=== PATIENT | female | born 1960 | race Caucasian/White ===

== ENCOUNTER 2016-10-27 23:40 | Inpatient (IN) | payer MEDICAID ==
[~2016-10-27] VITALS: Ht 162.6 cm; Wt 86.1 kg
[~2016-10-27 23:40] MED LIST: ABILIFY 10MG TA10 MG PO; AMOXICILLIN 8751 TAB PO; BUMEX 1MG TA1 MG/TA1 PO; COREG 25MG25 MG/TAB PO; COREG 3.123.125 MG/T PO; COREG12.5 MG PO; DIOVAN 160MG160 MG PO; DIOVAN HCT 25 M1 TA1 PO; GEODON 20 MG20 MG PO; K-DUR 10 MEQ T10 MEQ PO; LAMISIL250 MG PO; LEVAQUIN 5500 MG/TA1 PO; MACROBID 1100 MG/CAP PO; MAG-OX 400400 MG/TAB PO; MAGNESIUM250 M1 PO; NAPROSYN500 MG PO; NO HOME MEDICATIONS; NORCO 325 MG-101 TAB PO; NORCO 325 MG-51 TAB PO; NORVASC 5MG5 MG/TAB PO; NORVASC2.5 MG PO; OXYCONTIN 10MG10 MG PO; PERCOCET 325 MG1 TA2 PO; PERCOCET 325 MG1 TAB PO; PHENERGAN 25 TA25 MG PO; PREDNISONE20 MG PO; PRILOSEC 20MG20 MG PO; PROAIR HFA0.09 MG/AC IH; PROTONIX 40MG T40 MG PO; PYRIDIUM 100MG100 MG PO; SINGULAIR 4MG CH4 MG PO; TUSS PO; UNABLE; XANAX2 MG PO; ZOFRAN 4MG T4 MG/TAB PO
[2016-10-27 23:52] LABS: BASO # 0.1 (0.0-0.2); BASO % 1.2 % (0.0-2.0); EOS # 0.3 (0.0-0.7); EOS % 5.1 % (0-4.0); GRAN # 3.6 (1.4-6.5); GRAN % 53.1 % (42.2-75.2); HEMOGLOBIN 12.3 g/dl (12.5-16.0); LYMPH # 2.3 (1.2-3.4); LYMPH % 33.7 % (20.0-51.0); MEAN CELL VOLUME 94 fl (80.0-100.0); MEAN CORPUSCULAR HEMOGLOBIN 32 pg (27.0-31.0); MEAN CORPUSCULAR HGB CONC 34 g/dl (33.0-37.0); MONO # 0.4 (0.1-0.6); MONO % 6.6 % (1.7-9.3); PLATELET COUNT 247 K/mm3 (130-400); RED BLOOD COUNT 3.82 M/mm3 (4.10-5.30); REDCELL DISTRIBUTION WIDTH-CV 12.1 % (11.5-14.5); WHITE BLOOD COUNT 6.7 K/mm3 (4.8-10.8)
[2016-10-27 23:53] LABS: HEMATOCRIT 35.9 % (37.0-47.0)
[2016-10-27 23:59] LABS: ADJUSTED CALCIUM 8.7 mg/dL (8.4-10.2); ALANINE AMINOTRANSFERASE 79 U/L (9-52); ALBUMIN 3.6 gm/dL (3.5-5.0); ALKALINE PHOSPHATASE 130 U/L (50-136); ANION GAP 16 mmol/L (7-16); BILIRUBIN,TOTAL 0.7 mg/dL (0.0-1.0); BLOOD UREA NITROGEN 12 mg/dL (7-17); CALCIUM 8.4 mg/dL (8.4-10.2); CARBON DIOXIDE 22 mmol/L (22-30); CHLORIDE 112 mmol/L (98-107); CREATININE, serum 0.78 mg/dL (0.52-1.25); GLUCOSE 106 mg/dL (74-106); POTASSIUM 3.3 mmol/L (3.4-5.0); SODIUM 150 mmol/L (137-145); TOTAL PROTEIN 7.1 gm/dL (6.4-8.2)
[2016-10-28] VITALS (928 sets, daily range): BP systolic 90–158; BP diastolic 50–98; PULSE 72–101; TEMP 97–97.9; O2SAT 83–100
[2016-10-28 00:03] LABS: PH 6 (5-8); SQUAMOUS EPITHELIAL None Seen /hpf; URINE APPEARANCE Clear; URINE BACTERIA None Seen /hpf; URINE BILIRUBIN Negative (NEGATIVE); URINE BLOOD 1+ (NEGATIVE); URINE COLOR Colorless; URINE GLUCOSE Negative (NEGATIVE); URINE KETONE Negative (NEGATIVE); URINE RBC None Seen /hpf; URINE UROBILINOGEN Negative (NEGATIVE); URINE WBC None Seen /hpf
[2016-10-28 00:04] LABS: ARTERIAL BLD GAS O2 SATURATION 99.1 % (92-100); ARTERIAL BLOOD GAS BASE EXCESS -5.9 (-2-2); ARTERIAL BLOOD GAS HCO3 19.5 meq/L (22-26); ARTERIAL BLOOD GAS PO2 551.6 mmHg (80-100); ARTERIAL BLOOD GAS pH 7.33 (7.35-7.45)
[2016-10-28 00:05] LABS: ALLEN TEST YES; ALLENS TEST RESULT PASS; ARTERIAL BLD GAS TCO2 CT 20.7; ATS? YES
[2016-10-28 00:09] LABS: AMPHETAMINE URINE NEGATIVE; BARBITURATES URINE NEGATIVE; BENZODIAZEPINES URINE POSITIVE; BUPRENORPHINE URINE NEGATIVE; METHADONE URINE NEGATIVE; OPIATES URINE NEGATIVE; OXYCODONE URINE POSITIVE; PHENCYCLIDINE URINE NEGATIVE; PROPOXYPHENE URINE NEGATIVE; THC CANNABINOIDS URINE NEGATIVE
[2016-10-28 00:35] LABS: ACETAMINOPHEN < 10 ug/mL (10-30); SALICYLATE < 1.0 mg/dL
[2016-10-28 05:15] LABS: ARTERIAL BLD GAS O2 SATURATION 97.9 % (92-100); ARTERIAL BLD GAS TCO2 CT 17.7; ARTERIAL BLOOD GAS BASE EXCESS -6.6 (-2-2); ARTERIAL BLOOD GAS HCO3 16.8 meq/L (22-26)
[2016-10-28 05:16] LABS: ALLEN TEST YES; ALLENS TEST RESULT PASS; ATS? YES
[2016-10-28 05:34] LABS: BASO # 0.1 (0.0-0.2); BASO % 0.8 % (0.0-2.0); EOS # 0.3 (0.0-0.7); EOS % 3.9 % (0-4.0); GRAN # 4.6 (1.4-6.5); GRAN % 60.1 % (42.2-75.2); LYMPH # 2.1 (1.2-3.4); MEAN CELL VOLUME 95 fl (80.0-100.0); MEAN CORPUSCULAR HGB CONC 34 g/dl (33.0-37.0); MEAN PLATELET VOLUME 9.7 fl (7.4-10.4); MONO # 0.6 (0.1-0.6); MONO % 7.9 % (1.7-9.3); PLATELET COUNT 175 K/mm3 (130-400); RED BLOOD COUNT 3.37 M/mm3 (4.10-5.30); REDCELL DISTRIBUTION WIDTH-CV 12.3 % (11.5-14.5); WHITE BLOOD COUNT 7.6 K/mm3 (4.8-10.8)
[2016-10-28 05:37] LABS: HEMATOCRIT 31.9 % (37.0-47.0); HEMOGLOBIN 10.8 g/dl (12.5-16.0); MEAN CORPUSCULAR HEMOGLOBIN 32 pg (27.0-31.0)
[2016-10-28 05:44] LABS: ADJUSTED CALCIUM 8.8 mg/dL (8.4-10.2); BILIRUBIN,TOTAL 0.5 mg/dL (0.0-1.0); CREATININE, serum 0.81 mg/dL (0.52-1.25); POTASSIUM 3.9 mmol/L (3.4-5.0); TOTAL PROTEIN 6.2 gm/dL (6.4-8.2)
[2016-10-28] MEDS ORDERED: DAZIDOX10 MG PO (09:45)
== END 2016-10-28 16:54 | disposition home or self-care (01) | DRG 918 ==
LOC: COL.ER 23:40 → ICU 10-28 00:18
PROVIDERS: Family Medicine
PROC: 0BH17EZ Insertion of Endotracheal Airway into Trachea, Via Natural or Artificial Opening (ICD-10-PCS; principal; 2016-10-28)
PROC: 5A1935Z Respiratory Ventilation, Less than 24 Consecutive Hours (ICD-10-PCS; 2016-10-28)
DX: T42.4X2A Poisoning by benzodiazepines, intentional self-harm, initial encounter (principal); R47.81 Slurred speech; I10 Essential (primary) hypertension; F43.21 Adjustment disorder with depressed mood; Z98.84 Bariatric surgery status
CPT/HCPCS: 90791-AI; 99223-AI; A4315; C9113; J1650; J2704; J3480; J7030

== ENCOUNTER 2016-11-13 10:26 | Emergency (ER) | payer MEDICAID ==
[~2016-11-13] VITALS: Ht 165.1 cm; Wt 77.3 kg
[~2016-11-13 10:26] MED LIST changes: +DAZIDOX10 MG PO
[2016-11-13 10:37] VITALS: TEMP 98.2
[2016-11-13 10:49] LABS: BASO # 0.1 (0.0-0.2); BASO % 0.8 % (0.0-2.0); EOS # 0.2 (0.0-0.7); EOS % 2.3 % (0-4.0); GRAN # 6.1 (1.4-6.5); GRAN % 72.8 % (42.2-75.2); HEMATOCRIT 37.7 % (37.0-47.0); HEMOGLOBIN 13.1 g/dl (12.5-16.0); LYMPH # 1.5 (1.2-3.4); LYMPH % 17.4 % (20.0-51.0); MEAN CELL VOLUME 93 fl (80.0-100.0); MEAN CORPUSCULAR HEMOGLOBIN 32 pg (27.0-31.0); MEAN CORPUSCULAR HGB CONC 35 g/dl (33.0-37.0); MEAN PLATELET VOLUME 10.9 fl (7.4-10.4); MONO # 0.6 (0.1-0.6); MONO % 6.5 % (1.7-9.3); PLATELET COUNT 263 K/mm3 (130-400); RED BLOOD COUNT 4.07 M/mm3 (4.10-5.30); REDCELL DISTRIBUTION WIDTH-CV 11.9 % (11.5-14.5); WHITE BLOOD COUNT 8.4 K/mm3 (4.8-10.8)
[2016-11-13 10:59] LABS: PARTIAL THROMBOPLASTIN TIME 32.5 SECONDS (26.0-37.0)
[2016-11-13 11:04] LABS: ADJUSTED CALCIUM 9.3 mg/dL (8.4-10.2); ALANINE AMINOTRANSFERASE 54 U/L (9-52); ALKALINE PHOSPHATASE 148 U/L (50-136); ANION GAP 13 mmol/L (7-16); BILIRUBIN,TOTAL 1.1 mg/dL (0.0-1.0); BLOOD UREA NITROGEN 17 mg/dL (7-17); C-REACTIVE PROTEIN 0.8 mg/dL (0.0-0.9); CALCIUM 9.3 mg/dL (8.4-10.2); CARBON DIOXIDE 23 mmol/L (22-30); CHLORIDE 106 mmol/L (98-107); CREATININE, serum 0.78 mg/dL (0.52-1.25); GLUCOSE 96 mg/dL (74-106); LIPASE 42 U/L (23-300); POTASSIUM 3.3 mmol/L (3.4-5.0); SODIUM 141 mmol/L (137-145); TOTAL PROTEIN 7.6 gm/dL (6.4-8.2)
[2016-11-13 11:12] LABS: B-TYPE NATRIURETIC PEPTIDE 379 pg/mL (0-125)
[2016-11-13 11:14] LABS: TROPONIN-I < 0.012 ng/mL (0.000-0.034)
[2016-11-13 11:15] LABS: INR 1.1 (0.8-3.0); PROTHROMBIN TIME 12.3 SECONDS (9.7-12.8)
[2016-11-13 12:40] VITALS: BP 152/82; PULSE 66
== END 2016-11-13 12:44 | disposition home or self-care (01) ==
LOC: COL.ER 10:26
PROVIDERS: Emergency Medicine
DX: R07.89 Other chest pain (principal); I10 Essential (primary) hypertension

== ENCOUNTER 2016-11-19 11:42 | Emergency (ER) | payer MEDICAID ==
[~2016-11-19] VITALS: Ht 167.6 cm; Wt 79.5 kg
[2016-11-19 12:43] LABS: BASO # 0.1 (0.0-0.2); BASO % 1.3 % (0.0-2.0); EOS # 0.2 (0.0-0.7); EOS % 1.9 % (0-4.0); GRAN # 5.8 (1.4-6.5); GRAN % 51.7 % (42.2-75.2); HEMATOCRIT 41.5 % (37.0-47.0); HEMOGLOBIN 14.1 g/dl (12.5-16.0); LYMPH # 3.9 (1.2-3.4); LYMPH % 35.2 % (20.0-51.0); MEAN CELL VOLUME 94 fl (80.0-100.0); MEAN CORPUSCULAR HEMOGLOBIN 32 pg (27.0-31.0); MEAN CORPUSCULAR HGB CONC 34 g/dl (33.0-37.0); MEAN PLATELET VOLUME 10.2 fl (7.4-10.4); MONO # 1.1 (0.1-0.6); MONO % 9.6 % (1.7-9.3); PLATELET COUNT 418 K/mm3 (130-400); RED BLOOD COUNT 4.43 M/mm3 (4.10-5.30); REDCELL DISTRIBUTION WIDTH-CV 12.4 % (11.5-14.5); WHITE BLOOD COUNT 11.2 K/mm3 (4.8-10.8)
[2016-11-19 12:58] LABS: ADJUSTED CALCIUM 8.8 mg/dL (8.4-10.2); ALANINE AMINOTRANSFERASE 72 U/L (9-52); ALBUMIN 4.2 gm/dL (3.5-5.0); ALKALINE PHOSPHATASE 176 U/L (50-136); ANION GAP 19 mmol/L (7-16); BILIRUBIN,TOTAL 0.6 mg/dL (0.0-1.0); BLOOD UREA NITROGEN 19 mg/dL (7-17); CARBON DIOXIDE 22 mmol/L (22-30); CHLORIDE 106 mmol/L (98-107); CREATININE, serum 1.15 mg/dL (0.52-1.25); GLUCOSE 104 mg/dL (74-106); POTASSIUM 3.2 mmol/L (3.4-5.0); SODIUM 146 mmol/L (137-145); TOTAL PROTEIN 8.1 gm/dL (6.4-8.2)
[2016-11-19 13:00] LABS: ACETAMINOPHEN < 10 ug/mL (10-30); SALICYLATE < 1.0 mg/dL
[2016-11-19 13:12] LABS: AMPHETAMINE URINE NEGATIVE; BARBITURATES URINE NEGATIVE; BENZODIAZEPINES URINE POSITIVE; BUPRENORPHINE URINE NEGATIVE; METHADONE URINE NEGATIVE; OPIATES URINE POSITIVE; OXYCODONE URINE POSITIVE; PHENCYCLIDINE URINE NEGATIVE; PROPOXYPHENE URINE NEGATIVE; THC CANNABINOIDS URINE NEGATIVE
[2016-11-19 22:54] VITALS: BP 167/95; PULSE 107
== END 2016-11-19 22:57 | disposition home or self-care (01) ==
LOC: COL.ER 11:42
PROVIDERS: Nurse Practitioner
DX: F33.2 Major depressive disorder, recurrent severe without psychotic features (principal); F10.120 Alcohol abuse with intoxication, uncomplicated; Y90.8 Blood alcohol level of 240 mg/100 ml or more

== ENCOUNTER 2017-02-27 11:00 | Emergency (ER) | payer MEDICAID ==
[~2017-02-27] VITALS: Ht 167.6 cm; Wt 79.5 kg
[2017-02-27 11:04] VITALS: TEMP 98.4
[2017-02-27 11:59] LABS: BASO # 0.1 (0.0-0.2); BASO % 0.7 % (0.0-2.0); EOS # 0.3 (0.0-0.7); EOS % 3.7 % (0-4.0); GRAN # 5.8 (1.4-6.5); GRAN % 71.4 % (42.2-75.2); HEMATOCRIT 40.7 % (37.0-47.0); LYMPH # 1.4 (1.2-3.4); LYMPH % 16.6 % (20.0-51.0); MEAN CELL VOLUME 91 fl (80.0-100.0); MEAN CORPUSCULAR HEMOGLOBIN 31 pg (27.0-31.0); MEAN CORPUSCULAR HGB CONC 34 g/dl (33.0-37.0); MEAN PLATELET VOLUME 10.7 fl (7.4-10.4); MONO # 0.6 (0.1-0.6); MONO % 7.4 % (1.7-9.3); PLATELET COUNT 269 K/mm3 (130-400); RED BLOOD COUNT 4.47 M/mm3 (4.10-5.30); REDCELL DISTRIBUTION WIDTH-CV 11.6 % (11.5-14.5); WHITE BLOOD COUNT 8.1 K/mm3 (4.8-10.8)
[2017-02-27 12:06] LABS: PH 6 (5-8); SQUAMOUS EPITHELIAL 20-50 /hpf; URINE APPEARANCE Cloudy; URINE BACTERIA Rare /hpf; URINE BILIRUBIN Negative (NEGATIVE); URINE BLOOD 2+ (NEGATIVE); URINE COLOR Yellow; URINE GLUCOSE Negative (NEGATIVE); URINE KETONE Negative (NEGATIVE)
[2017-02-27 12:09] LABS: ALBUMIN 3.9 gm/dL (3.5-5.0); BILIRUBIN,TOTAL 1.3 mg/dL (0.0-1.0); CALCIUM 8.9 mg/dL (8.4-10.2); CREATININE, serum 0.68 mg/dL (0.52-1.25); POTASSIUM 3.5 mmol/L (3.4-5.0); TOTAL PROTEIN 7.3 gm/dL (6.4-8.2)
[2017-02-27] MEDS ORDERED: ZOFRAN ODT4 MG PO (12:50)
[2017-02-27 13:04] VITALS: BP 132/82; PULSE 74
== END 2017-02-27 13:06 | disposition home or self-care (01) ==
LOC: COL.ER 11:00
PROVIDERS: Emergency Medicine
DX: R10.11 Right upper quadrant pain (principal); I10 Essential (primary) hypertension; F32.9 Major depressive disorder, single episode, unspecified; G43.909 Migraine, unspecified, not intractable, without status migrainosus; Z98.84 Bariatric surgery status

== ENCOUNTER 2017-10-03 05:48 | Day surgery (SDC) | payer MEDICAID ==
[~2017-10-03] VITALS: Ht 167.6 cm; Wt 86.9 kg
[2017-10-03] VITALS (7 sets, daily range): BP systolic 106–144; BP diastolic 53–90; PULSE 73–82; TEMP 97.9–98.7
[~2017-10-03 05:48] MED LIST changes: +BLOOD PRESSURE MED; +THYROID MED; +ZOFRAN ODT4 MG PO
[2017-10-03] MEDS ORDERED: SYNTHROID0.075 MG/T PO (06:40)
[2017-10-03] MEDS ORDERED: WELLBUTRIN 100100 MG PO (06:44)
[2017-10-03] MEDS ORDERED: DIOVAN 160MG160 MG PO (06:45)
== END 2017-10-03 09:14 | disposition home or self-care (01) ==
LOC: SDCO 05:48
DX: K64.1 Second degree hemorrhoids (principal); K30 Functional dyspepsia; K62.5 Hemorrhage of anus and rectum; R19.7 Diarrhea, unspecified; K31.89 Other diseases of stomach and duodenum; I10 Essential (primary) hypertension; D50.9 Iron deficiency anemia, unspecified; Z90.49 Acquired absence of other specified parts of digestive tract; Z90.710 Acquired absence of both cervix and uterus
CPT/HCPCS: OP; J2250; J2405; J3010; J7030

== ENCOUNTER → 2018-09-07 | Outpatient (CLI) | payer MEDICAID ==
[~2018-09-07] MED LIST changes: +SYNTHROID0.075 MG/T PO; +WELLBUTRIN 100100 MG PO
== END ==
LOC: MC.RAD 13:20
DX: Z12.31 Encounter for screening mammogram for malignant neoplasm of breast (principal)

== ENCOUNTER 2019-10-29 23:46 | Emergency (ER) | payer MEDICAID ==
[~2019-10-29] VITALS: Ht 167.6 cm; Wt 90.9 kg
[2019-10-29 23:53] VITALS: TEMP 98.8
[2019-10-30 00:18] LABS: BASO # 0.1 (0.0-0.2); BASO % 0.9 % (0.0-2.0); EOS # 0.5 (0.0-0.7); EOS % 5.7 % (0-4.0); GRAN % 57.1 % (42.2-75.2); HEMOGLOBIN 11.3 g/dl (12.5-16.0); LYMPH # 2.4 (1.2-3.4); LYMPH % 27.4 % (20.0-51.0); MEAN CELL VOLUME 92 fl (80.0-100.0); MEAN CORPUSCULAR HEMOGLOBIN 30 pg (27.0-31.0); MEAN CORPUSCULAR HGB CONC 32 g/dl (33.0-37.0); MEAN PLATELET VOLUME 10.4 fl (7.4-10.4); MONO # 0.8 (0.1-0.6); MONO % 8.6 % (1.7-9.3); PLATELET COUNT 263 K/mm3 (130-400); RED BLOOD COUNT 3.83 M/mm3 (4.10-5.30); REDCELL DISTRIBUTION WIDTH-CV 13.2 % (11.5-14.5)
[2019-10-30 00:20] LABS: ALBUMIN 4.1 gm/dL (3.5-5.0); BILIRUBIN,TOTAL 0.2 mg/dL (0.0-1.0); CALCIUM 9.5 mg/dL (8.4-10.2); CREATININE, serum 1.34 (0.52-1.25); TOTAL PROTEIN 7.9 gm/dL (6.4-8.2)
[2019-10-30 00:21] LABS: HEMATOCRIT 35.4 % (37.0-47.0)
[2019-10-30 01:52] LABS: COLLECTION METHOD CLEAN CATCH
[2019-10-30 02:01] LABS: MUCOUS Present /lpf; PH 5 (5-8); SQUAMOUS EPITHELIAL 0-2 /hpf; URINE APPEARANCE Cloudy; URINE BACTERIA Rare /hpf; URINE BILIRUBIN Negative (NEGATIVE); URINE BLOOD 1+ (NEGATIVE); URINE COLOR Yellow; URINE GLUCOSE Negative (NEGATIVE); URINE KETONE Negative (NEGATIVE); URINE LEUKOCYTE ESTERASE Negative (NEGATIVE); URINE NITRATE Negative (NEGATIVE); URINE PROTEIN(semi-quant) Negative (NEGATIVE); URINE RBC None Seen /hpf; URINE UROBILINOGEN Negative (NEGATIVE)
[2019-10-30] MEDS ORDERED: TESSALON PERLE200 MG PO (02:47)
[2019-10-30] MEDS ORDERED: ZITHROMAX500 M2 PO (02:47)
[2019-10-30] MEDS ORDERED: PREDNISONE20 MG PO (02:47)
[2019-10-30 03:00] VITALS: BP 156/93; PULSE 81
== END 2019-10-30 03:00 | disposition home or self-care (01) ==
LOC: COL.ER 23:46
PROVIDERS: Emergency Medicine
DX: J20.9 Acute bronchitis, unspecified (principal); J45.909 Unspecified asthma, uncomplicated; I10 Essential (primary) hypertension; Z90.710 Acquired absence of both cervix and uterus; Z90.89 Acquired absence of other organs; Z98.84 Bariatric surgery status; Z68.32 Body mass index [BMI] 32.0-32.9, adult
CPT/HCPCS: J1200; J2405; J2930; J3010; J7030

== ENCOUNTER 2021-03-08 01:55 | Emergency (ER) | payer MEDICAID ==
[~2021-03-08] VITALS: Ht 165.1 cm; Wt 90.9 kg
[~2021-03-08 01:55] MED LIST changes: +TESSALON PERLE200 MG PO; +ZITHROMAX500 M2 PO
[2021-03-08 02:43] LABS: COLLECTION METHOD CLEAN CATCH
[2021-03-08 02:49] LABS: PH 7 (5-8); SQUAMOUS EPITHELIAL None Seen /hpf; URINE APPEARANCE Clear; URINE BACTERIA None Seen /hpf; URINE BILIRUBIN Negative (NEGATIVE); URINE BLOOD 1+ (NEGATIVE); URINE COLOR Colorless; URINE GLUCOSE Negative (NEGATIVE); URINE KETONE Negative (NEGATIVE); URINE LEUKOCYTE ESTERASE Negative (NEGATIVE); URINE NITRATE Negative (NEGATIVE); URINE PROTEIN(semi-quant) Negative (NEGATIVE); URINE RBC None Seen /hpf; URINE UROBILINOGEN Negative (NEGATIVE)
[2021-03-08 02:54] LABS: BASO # 0.1 (0.0-0.2); BASO % 0.8 % (0.0-2.0); EOS # 0.4 (0.0-0.7); EOS % 3.8 % (0-4.0); GRAN # 6.9 (1.4-6.5); GRAN % 66.6 % (42.2-75.2); HEMATOCRIT 39.5 % (37.0-47.0); HEMOGLOBIN 12.7 g/dl (12.5-16.0); LYMPH # 2.4 (1.2-3.4); LYMPH % 22.7 % (20.0-51.0); MEAN CELL VOLUME 91 fl (80.0-100.0); MEAN CORPUSCULAR HEMOGLOBIN 29 pg (27.0-31.0); MEAN CORPUSCULAR HGB CONC 32 g/dl (33.0-37.0); MEAN PLATELET VOLUME 9.9 fl (7.4-10.4); MONO # 0.6 (0.1-0.6); MONO % 5.7 % (1.7-9.3); PLATELET COUNT 279 K/mm3 (130-400); RED BLOOD COUNT 4.32 M/mm3 (4.10-5.30); REDCELL DISTRIBUTION WIDTH-CV 13.7 % (11.5-14.5)
[2021-03-08 02:55] LABS: TRICYCLIC ANTIDEPRESS URINE NEGATIVE
[2021-03-08 03:09] LABS: ACETAMINOPHEN < 10 ug/mL (10-30); ALANINE AMINOTRANSFERASE 142 U/L (4-34); ALBUMIN 4.3 gm/dL (3.5-5.0); ALCOHOL(ethanol),MEDICAL 184 mg/dL; ALKALINE PHOSPHATASE 127 U/L (50-136); ANION GAP 13 mmol/L (7-16); AST,SGOT 126 U/L (15-37); BILIRUBIN,TOTAL 0.2 mg/dL (0.0-1.0); BLOOD UREA NITROGEN 16 mg/dL (7-17); CALCIUM 9.8 mg/dL (8.4-10.2); CARBON DIOXIDE 24 mmol/L (22-30); CHLORIDE 105 mmol/L (98-107); GLUCOSE 87 mg/dL (74-106); POTASSIUM 3.9 mmol/L (3.4-5.0); SALICYLATE < 1.0 mg/dL; SODIUM 142 mmol/L (137-145); TOTAL PROTEIN 8.7 gm/dL (6.4-8.2)
[2021-03-08 10:01] VITALS: BP 141/78; PULSE 81; TEMP 98.2
== END 2021-03-08 10:01 ==
LOC: COL.ER 01:55
PROVIDERS: Emergency Medicine
DX: F10.129 Alcohol abuse with intoxication, unspecified (principal); F32.9 Major depressive disorder, single episode, unspecified; R51.9 Headache, unspecified; Z88.6 Allergy status to analgesic agent; Z88.8 Allergy status to other drugs, medicaments and biological substances
CPT/HCPCS: J1885

== ENCOUNTER 2021-04-21 17:28 | Emergency (ER) | payer MEDICAID ==
[~2021-04-21] VITALS: Ht 165.1 cm; Wt 90.9 kg
[2021-04-21 18:07] VITALS: TEMP 98.7
[2021-04-21 18:58] LABS: BASO # 0.1 (0.0-0.2); EOS # 0.3 (0.0-0.7); EOS % 3.9 % (0-4.0); GRAN # 5.8 (1.4-6.5); GRAN % 73.5 % (42.2-75.2); HEMOGLOBIN 12.7 g/dl (12.5-16.0); LYMPH # 0.9 (1.2-3.4); LYMPH % 11.5 % (20.0-51.0); MEAN CELL VOLUME 91 fl (80.0-100.0); MEAN CORPUSCULAR HEMOGLOBIN 30 pg (27.0-31.0); MEAN CORPUSCULAR HGB CONC 33 g/dl (33.0-37.0); MEAN PLATELET VOLUME 10.5 fl (7.4-10.4); MONO # 0.8 (0.1-0.6); MONO % 9.7 % (1.7-9.3); PLATELET COUNT 214 K/mm3 (130-400); RED BLOOD COUNT 4.31 M/mm3 (4.10-5.30); REDCELL DISTRIBUTION WIDTH-CV 13.2 % (11.5-14.5)
[2021-04-21 19:11] LABS: BILIRUBIN,TOTAL 0.7 mg/dL (0.0-1.0); C-REACTIVE PROTEIN 1.2 mg/dL (0.0-0.9); CALCIUM 9.5 mg/dL (8.4-10.2); CREATININE, serum 0.92 (0.52-1.25); POTASSIUM 4.8 mmol/L (3.4-5.0); TOTAL PROTEIN 8.2 gm/dL (6.4-8.2); URIC ACID 10.6 mg/dL (2.5-6.2)
[2021-04-21] MEDS ORDERED: PREDNISONE20 MG PO (20:26)
[2021-04-21] MEDS ORDERED: EC-NAPROSYN500 MG PO (20:27)
[2021-04-21 21:26] VITALS: BP 131/88; PULSE 81
== END 2021-04-21 21:26 | disposition home or self-care (01) ==
LOC: COL.ER 17:28
PROVIDERS: Nurse Practitioner Family
DX: M25.562 Pain in left knee (principal); R79.89 Other specified abnormal findings of blood chemistry; M10.9 Gout, unspecified; I10 Essential (primary) hypertension; G89.29 Other chronic pain; M54.9 Dorsalgia, unspecified; F32.9 Major depressive disorder, single episode, unspecified; E07.9 Disorder of thyroid, unspecified; E66.9 Obesity, unspecified; Z98.84 Bariatric surgery status; Z88.6 Allergy status to analgesic agent; Z79.891 Long term (current) use of opiate analgesic; Z79.899 Other long term (current) drug therapy; Z79.890 Hormone replacement therapy
CPT/HCPCS: J1885; J7512

== ENCOUNTER 2023-07-18 14:54 | Inpatient (IN) | payer MEDICAID ==
[~2023-07-18] VITALS: Ht 165.1 cm; Wt 87.0 kg
[~2023-07-18 14:54] MED LIST changes: +DESYREL 100MG100 MG PO; +EC-NAPROSYN500 MG PO; +SYNTHROID 0.0.025 MG PO; -SYNTHROID0.075 MG/T PO; +Vancocin PO
[2023-07-18 16:31] LABS: BASO # 0.1 K/mm3 (0.0-0.2); BASO % 0.5 % (0.0-2.0); EOS # 0.1 K/mm3 (0.0-0.7); EOS % 1.1 % (0.0-4.0); GRAN # 7.2 K/mm3 (1.4-6.5); GRAN % 78.3 % (42.2-75.2); LYMPH # 0.9 K/mm3 (1.2-3.4); LYMPH % 9.8 % (20.0-51.0); MEAN CELL VOLUME 96 fl (80.0-100.0); MEAN CORPUSCULAR HGB CONC 32 g/dl (33.0-37.0); MEAN PLATELET VOLUME 10.4 fl (7.4-10.4); MONO # 0.9 K/mm3 (0.1-0.6); MONO % 9.5 % (1.7-9.3); PLATELET COUNT 235 K/mm3 (130-400); RED BLOOD COUNT 2.97 M/mm3 (4.10-5.30)
[2023-07-18 16:32] LABS: HEMATOCRIT 28.4 % (37.0-47.0); HEMOGLOBIN 9.2 g/dl (12.5-16.0); MEAN CORPUSCULAR HEMOGLOBIN 31 pg (27-31)
[2023-07-18 16:49] LABS: ALBUMIN 2.5 gm/dL (3.4-4.8); BILIRUBIN,TOTAL 1.2 mg/dL (0.2-1.2); CALCIUM 8.7 mg/dL (8.4-10.2); CREATININE, serum 3.21 mg/dL (0.57-1.11); POTASSIUM 3.9 mmol/L (3.5-4.5); TOTAL PROTEIN 7.4 gm/dL (6.2-8.1)
[2023-07-18 16:55] LABS: TROPONIN-I 0.022 ng/mL (0.00-0.033)
[2023-07-18 23:30] VITALS: BP 102/74; PULSE 71; TEMP 98.1
[2023-07-19] VITALS (8 sets, daily range): BP systolic 109–139; BP diastolic 54–64; PULSE 55–76; TEMP 97.4–98.4
--- NOTE | 2023-07-19 05:00 | NUR ---
PT ARRIVED TO THE MEDICAL FLOOR AROUND 2330HRS TO ROOM 318. PT A&O X 4; VSS FOR PT; O2 RA. PT COMPLAINED OF LOWER BACK PAIN. PT GIVEN OYXCODONE FOR PAIN. PT FELT PAIN MEDICATION WAS EFFECTIVE. PT DENIED CHEST PAIN, PALPITATIONS, SOB, N,V,D OR DIZZINESS. ADMISSIONS ASSESSMENT AND MED REC COMPLETE. PT ORIENTED TO ROOM AND HOSPITAL POLICY. ALL QUESTIONS AND CONCERNS ADDRESSED. CALL LIGHT WITHIN REACH.
[2023-07-19 06:32] LABS: HEMATOCRIT 25.1 % (37.0-47.0); HEMOGLOBIN 8.1 g/dl (12.5-16.0); MEAN CELL VOLUME 97 fl (80.0-100.0); MEAN CORPUSCULAR HEMOGLOBIN 31 pg (27-31); MEAN CORPUSCULAR HGB CONC 32 g/dl (33.0-37.0); MEAN PLATELET VOLUME 10.4 fl (7.4-10.4); PLATELET COUNT 188 K/mm3 (130-400); RED BLOOD COUNT 2.59 M/mm3 (4.10-5.30)
[2023-07-19 06:54] LABS: ALBUMIN 2.8 gm/dL (3.4-4.8); BILIRUBIN,TOTAL 1.2 mg/dL (0.2-1.2); CALCIUM 9.3 mg/dL (8.4-10.2); CREATININE, serum 3.01 mg/dL (0.57-1.11); MAGNESIUM 1.6 mg/dL (1.6-2.6); POTASSIUM 4.2 mmol/L (3.5-4.5); TOTAL PROTEIN 6.9 gm/dL (6.2-8.1)
[2023-07-19 06:57] LABS: THYROID STIMULATING HORMONE 48.03 uIU/mL (0.350-4.940)
--- NOTE | 2023-07-19 08:34 | NUR ---
PT DOING WELL THIS MORNING. COMPLAINT OF LOWER BACK PAIN, PRN PAIN MEDICATION GIVEN. NO COMPLAINT OF SHORTNESS OF BREATH NOTED. PT REMAINS ON 1500FL RESTRICTION.
--- NOTE | 2023-07-19 10:21 | NUR ---
Initial visit; Patient welcomed Television Production Clerk and thanked her for looking in on her. Patient states she is "doing ok." Patient had no requests from Television Production Clerk who wished her well and offered God's blessings.
--- NOTE | 2023-07-19 16:47 | NUR ---
SW met with patient to conduct care management assessment and discuss discharge planning. Patient reports that she lives in her home alone and that she does have friend listed as NOK: Erik Lee [phone]. Patient reports that she is independent with ADL's and does not ulitlize any current DME's. PCP is Dr Chaudhari and pharmacy of choice is [facility]. Patient is excepting to discharge back to her home pending further medical recommedations at this time.
[2023-07-20] VITALS (10 sets, daily range): BP systolic 109–127; BP diastolic 51–69; PULSE 68–82; TEMP 98–98.9
[2023-07-20 07:14] LABS: MEAN CELL VOLUME 94 fl (80.0-100.0); MEAN CORPUSCULAR HGB CONC 34 g/dl (33.0-37.0); MEAN PLATELET VOLUME 11.6 fl (7.4-10.4); PLATELET COUNT 178 K/mm3 (130-400); RED BLOOD COUNT 2.59 M/mm3 (4.10-5.30); REDCELL DISTRIBUTION WIDTH-CV 19.1 % (11.5-14.5)
[2023-07-20 07:16] LABS: HEMATOCRIT 24.3 % (37.0-47.0); HEMOGLOBIN 8.2 g/dl (12.5-16.0); MEAN CORPUSCULAR HEMOGLOBIN 32 pg (27-31)
--- NOTE | 2023-07-20 08:42 | NUR ---
PT WITH COMPLAINT OF NAUSEA THIS MORNING AFTER BREAKFAST. PRN ZOFRAN GIVEN. NO COMPLAINTS OF PAIN ON ASSESSMENT. PT REMAINS ON TELE- SR. NO SHORTNESS OF BREATH OR DIFFICULTY BREATHING NOTED. PT REMAINS ON 1500ML FLUID RESTRICTION.
[2023-07-21] VITALS (13 sets, daily range): BP systolic 97–139; BP diastolic 44–64; PULSE 68–73; TEMP 98–98.9
[2023-07-21 07:34] LABS: CALCIUM 8.6 mg/dL (8.4-10.2); CREATININE, serum 2.69 mg/dL (0.57-1.11); POTASSIUM 3.4 mmol/L (3.5-4.5)
[2023-07-21 08:10] LABS: BASO # 0.1 K/mm3 (0.0-0.2); BASO % 0.6 % (0.0-2.0); EOS # 0.2 K/mm3 (0.0-0.7); EOS % 2.3 % (0.0-4.0); GRAN % 73.6 % (42.2-75.2); LYMPH # 1.3 K/mm3 (1.2-3.4); LYMPH % 15.8 % (20.0-51.0); MEAN CELL VOLUME 96 fl (80.0-100.0); MEAN CORPUSCULAR HGB CONC 33 g/dl (33.0-37.0); MEAN PLATELET VOLUME 11.8 fl (7.4-10.4); MONO # 0.6 K/mm3 (0.1-0.6); MONO % 7.2 % (1.7-9.3); PLATELET COUNT 182 K/mm3 (130-400); RED BLOOD COUNT 2.71 M/mm3 (4.10-5.30); REDCELL DISTRIBUTION WIDTH-CV 19.4 % (11.5-14.5)
[2023-07-21 08:16] LABS: HEMOGLOBIN 8.6 g/dl (12.5-16.0); MEAN CORPUSCULAR HEMOGLOBIN 32 pg (27-31)
--- NOTE | 2023-07-21 09:00 | NUR ---
Patient is resting in bed, alert and oriented x 4, states pain in her back, PRN provided. Assessment completed. Telemetry in place, NSR, getting lasix. No further needs at this time. Call light within reach.
--- NOTE | 2023-07-21 10:30 | NUR ---
Typesetting Machine Operator/Tender collaborated with Treatment Team during rounding to assess Patient for discharge readiness. Patient is assessed to need continued treatment and assessment. Patient's discharge plan continues to be home at this time.
--- NOTE | 2023-07-21 19:42 | NUR ---
Patient awake, alert and oriented. Denies shortness of breath, nausea, or weakness. C/O back pain. Educated on NPO status at midnight to prepare for lexiscan tomorrow. Denies further needs at this time. Bed in lowest position with call light within reach.
[2023-07-22] VITALS (14 sets, daily range): BP systolic 106–133; BP diastolic 57–73; PULSE 66–85; TEMP 98.4–98.7
[2023-07-22 06:31] LABS: BASO # 0.1 K/mm3 (0.0-0.2); BASO % 0.7 % (0.0-2.0); EOS # 0.2 K/mm3 (0.0-0.7); EOS % 2.4 % (0.0-4.0); GRAN # 6.5 K/mm3 (1.4-6.5); GRAN % 75.3 % (42.2-75.2); LYMPH % 11.7 % (20.0-51.0); MEAN CELL VOLUME 96 fl (80.0-100.0); MEAN CORPUSCULAR HGB CONC 34 g/dl (33.0-37.0); MEAN PLATELET VOLUME 11.9 fl (7.4-10.4); MONO # 0.8 K/mm3 (0.1-0.6); MONO % 9.4 % (1.7-9.3); PLATELET COUNT 216 K/mm3 (130-400); REDCELL DISTRIBUTION WIDTH-CV 19.1 % (11.5-14.5)
[2023-07-22 06:34] LABS: HEMOGLOBIN 8.7 g/dl (12.5-16.0); MEAN CORPUSCULAR HEMOGLOBIN 32 pg (27-31)
--- NOTE | 2023-07-22 06:35 | NUR ---
C/O back pain throughout the night, PRNs provided as ordered. Able to rest on and off. Has been NPO since midnight for stress test today. Steady on feet when ambulating to bathroom. Back in bed, bed in lowest position with call light within reach.
[2023-07-22 06:36] LABS: CALCIUM 8.7 mg/dL (8.4-10.2); CREATININE, serum 2.54 mg/dL (0.57-1.11); POTASSIUM 3.1 mmol/L (3.5-4.5)
--- NOTE | 2023-07-22 12:00 | NUR ---
PT TAKEN DOWN FOR LEXISCAN AT THIS TIME.
--- NOTE | 2023-07-22 14:01 | NUR ---
PT BACK IN ROOM AFTER LEXISCAN. THERAPY IN THE ROOM WORKING WITH PT.
[2023-07-22] MEDS ORDERED: ASPIRIN E.C. 8181 MG PO (15:02)
[2023-07-22] MEDS ORDERED: LASIX 20MG TABL20 MG PO (15:03)
[2023-07-22] MEDS ORDERED: MAG-OX 400400 MG/TAB PO (15:03)
[2023-07-22] MEDS ORDERED: K-TAB20 PO (15:04)
--- NOTE | 2023-07-22 16:54 | NUR ---
ALL DISCHARGE INSTRUCTIONS REVIEWED WITH PT, ALL QUESTIONS AND CONCERNS ANSWERED.TELEMETRY TAKEN OFF OF PT. IV SITE DISCONTINUED, CATHETER TIP INTACT. ALL PERSONAL BELONGINGS TAKEN WITH PT. PT ESCORTED OUT BY PCT.
[2023-07-24 16:10] LABS: URINE T PROTEIN, RANDOM (PEP) 9.1 mg/dL (())
== END 2023-07-22 16:40 | disposition home or self-care (01) | DRG 291 ==
LOC: COL.ER 14:54 → MEDICAL 18:40
PROVIDERS: Internal Medicine; Physician Assistant; ADMIT Internal Medicine
DX: I13.0 Hypertensive heart and chronic kidney disease with heart failure and stage 1 through stage 4 chronic kidney disease, or unspecified chronic kidney disease (principal); I50.33 Acute on chronic diastolic (congestive) heart failure; E87.1 Hypo-osmolality and hyponatremia; N17.9 Acute kidney failure, unspecified; I31.39 Other pericardial effusion (noninflammatory); M54.9 Dorsalgia, unspecified; E66.9 Obesity, unspecified; F10.10 Alcohol abuse, uncomplicated; M81.0 Age-related osteoporosis without current pathological fracture; F32.A Depression, unspecified; E03.9 Hypothyroidism, unspecified; G47.00 Insomnia, unspecified; G89.4 Chronic pain syndrome; E88.09 Other disorders of plasma-protein metabolism, not elsewhere classified; E87.6 Hypokalemia; E83.42 Hypomagnesemia; D64.9 Anemia, unspecified; K21.9 Gastro-esophageal reflux disease without esophagitis; N18.9 Chronic kidney disease, unspecified; I50.9 Heart failure, unspecified; I34.0 Nonrheumatic mitral (valve) insufficiency; Z91.51 Personal history of suicidal behavior; Z90.49 Acquired absence of other specified parts of digestive tract; Z90.89 Acquired absence of other organs; Z90.710 Acquired absence of both cervix and uterus; Z88.6 Allergy status to analgesic agent; Z88.8 Allergy status to other drugs, medicaments and biological substances; Z79.890 Hormone replacement therapy; Z79.899 Other long term (current) drug therapy; Z91.148 Patient's other noncompliance with medication regimen for other reason; Z23 Encounter for immunization; Z68.31 Body mass index [BMI] 31.0-31.9, adult
CPT/HCPCS: A9500-JZ; J1644; J1940; J2405; J2785; J3475; P9047

== ENCOUNTER 2023-07-31 14:36 | Inpatient (IN) | payer MEDICAID ==
[~2023-07-31] VITALS: Ht 165.1 cm; Wt 83.0 kg
[~2023-07-31 14:36] MED LIST changes: +ASPIRIN E.C. 8181 MG PO; +K-TAB20 PO; +LASIX 20MG TABL20 MG PO
[2023-07-31 15:30] LABS: BASO # 0.1 K/mm3 (0.0-0.2); BASO % 0.8 % (0.0-2.0); EOS # 0.3 K/mm3 (0.0-0.7); EOS % 3.1 % (0.0-4.0); GRAN # 6.7 K/mm3 (1.4-6.5); GRAN % 77.7 % (42.2-75.2); LYMPH % 11.1 % (20.0-51.0); MEAN CELL VOLUME 98 fl (80.0-100.0); MEAN CORPUSCULAR HGB CONC 33 g/dl (33.0-37.0); MEAN PLATELET VOLUME 11.4 fl (7.4-10.4); MONO # 0.6 K/mm3 (0.1-0.6); MONO % 6.8 % (1.7-9.3); PLATELET COUNT 205 K/mm3 (130-400); RED BLOOD COUNT 2.76 M/mm3 (4.10-5.30); REDCELL DISTRIBUTION WIDTH-CV 17.3 % (11.5-14.5)
[2023-07-31 15:36] LABS: HEMOGLOBIN 8.9 g/dl (12.5-16.0); MEAN CORPUSCULAR HEMOGLOBIN 32 pg (27-31)
[2023-07-31 15:41] LABS: ALBUMIN 2.7 gm/dL (3.4-4.8); CALCIUM 9.2 mg/dL (8.4-10.2); CREATININE, serum 5.42 mg/dL (0.57-1.11); POTASSIUM 5.1 mmol/L (3.5-4.5); TOTAL PROTEIN 7.3 gm/dL (6.2-8.1)
[2023-07-31 17:14] LABS: COLLECTION METHOD CLEAN CATCH
[2023-07-31 17:38] LABS: URINE APPEARANCE Cloudy (CLEAR/HAZY); URINE COLOR Yellow (YELLOW); URINE PROTEIN(semi-quant) Negative (NEGATIVE)
[2023-07-31 17:39] LABS: URINE BLOOD 1+ (NEGATIVE); URINE GLUCOSE Negative (NEGATIVE); URINE KETONE TRACE (NEGATIVE); URINE NITRATE Negative (NEGATIVE); URINE UROBILINOGEN 0.2 E.U/dL (0.2-1.0)
[2023-07-31 17:47] LABS: URINE BACTERIA Many /hpf (NONE SEEN)
[2023-07-31 18:05] VITALS: BP 100/43; PULSE 76; TEMP 98.2
--- NOTE | 2023-07-31 18:05 | NUR ---
REPORT RECEVED FROM ED NURSE. PT UP TO FLOOR AT THIS TIME. VITALS STABLE, PT A/O X4, PAIN 10/10, YANES MEDICATION PROVIDED. WILL CONTINUE TO MONITOR.
[2023-07-31 19:28] VITALS: BP 104/50; PULSE 79; TEMP 98.6
[2023-07-31 20:39] VITALS: BP_SYST 104
--- NOTE | 2023-07-31 20:41 | NUR ---
PT A&O X4 LAYING IN BED. VSS. C/O CHRONIC BACK PAIN 07/29 - GIVEN PRN OXY. SHIFT ASSESSMENT COMPLETE & HS MEDS GIVEN. IVF INFUSING TO LEFT AC. BED LOWERED & CALL LIGHT IN REACH. DENYING FURTHER NEEDS AT THIS TIME.
[2023-07-31 23:05] VITALS: BP 107/42; PULSE 74; TEMP 98.4
[2023-07-31 23:16] VITALS: BP_SYST 107
[2023-08-01] VITALS (10 sets, daily range): BP systolic 104–123; BP diastolic 50–59; PULSE 70–76; TEMP 97.9–98.7
[2023-08-01 05:51] LABS: BASO # 0.1 K/mm3 (0.0-0.2); BASO % 0.9 % (0.0-2.0); EOS # 0.4 K/mm3 (0.0-0.7); EOS % 4.4 % (0.0-4.0); GRAN # 5.8 K/mm3 (1.4-6.5); GRAN % 68.2 % (42.2-75.2); LYMPH # 1.5 K/mm3 (1.2-3.4); LYMPH % 17.6 % (20.0-51.0); MEAN CELL VOLUME 96 fl (80.0-100.0); MEAN CORPUSCULAR HGB CONC 33 g/dl (33.0-37.0); MEAN PLATELET VOLUME 10.9 fl (7.4-10.4); MONO # 0.7 K/mm3 (0.1-0.6); MONO % 8.5 % (1.7-9.3); PLATELET COUNT 206 K/mm3 (130-400); RED BLOOD COUNT 2.75 M/mm3 (4.10-5.30); REDCELL DISTRIBUTION WIDTH-CV 17.3 % (11.5-14.5)
[2023-08-01 05:56] LABS: HEMATOCRIT 26.4 % (37.0-47.0); HEMOGLOBIN 8.8 g/dl (12.5-16.0); MEAN CORPUSCULAR HEMOGLOBIN 32 pg (27-31)
[2023-08-01 06:07] LABS: ALBUMIN 2.6 gm/dL (3.4-4.8); CREATININE, serum 4.93 mg/dL (0.57-1.11); MAGNESIUM 1.9 mg/dL (1.6-2.6); PHOSPHOROUS 4.1 mg/dL (2.3-4.7); POTASSIUM 4.5 mmol/L (3.5-4.5)
--- NOTE | 2023-08-01 09:32 | NUR ---
Blower Installer and SW student met with Patient at bedside to conduct Care Managment Assessment and discuss discharge planning. Patient is readmitted after discharging from [facility] on 07-22-23. Patient after discharge, Patient had an increase in Potasium and incresaed weakness. Patient states that she was doing fine at home and when asked about home health services, Patient immediatly decline stating that she will not accept assistance in the home. Patient states that she continues to see Dr. Barber and is still active with [facility]. Patient states that Physician is concerned about her medications and she openly states that she is on many medications and she doesn't know which is which. Per physician, medications perscribed in [place], [place] have recently been filled and there is concern that the change in condition is related to medications at home. Patient could benefit from Home Health Nursing support for medication assistance when discharged.
--- NOTE | 2023-08-01 12:33 | NUR ---
Initial visit: Sales Representative Trainee stopped by room on rounds. Pt was resting and content. Pt has no needs right now. Sales Representative Trainee will follow up as needed.
--- NOTE | 2023-08-01 13:46 | NUR ---
Professor Of Medicine and SW student met with Patient at bedside to discuss discharge planning. Professor Of Medicine discussed HH nursing coming into the home to assist with medication managment. Patient refuses in home assistance. SW recommended Patient bringing all medications to PCP office to assist with medication managment and knowledge of home medications. Patient agrees to bring all medications to PCP to ensure that she is taking the correct medications and have d/c medications disposed of. Discharge Plan: Home.
--- NOTE | 2023-08-01 19:53 | NUR ---
SHIFT ASSESSMENT COMPLETE. VSS. PATIENT RESTING IN BED WATCHING TV W/ SPOUSE AT BEDSIDE. NIGHT MEDS GIVEN PER ORDER. PATIENT HAD NO REQUEST OR COMLAINTS AT THIS TIME. CALL LIGHT IN REACH
[2023-08-02] VITALS (11 sets, daily range): BP systolic 106–141; BP diastolic 50–81; PULSE 73–76; TEMP 98–98.7
[2023-08-02 05:17] LABS: BASO # 0.1 K/mm3 (0.0-0.2); BASO % 0.8 % (0.0-2.0); EOS # 0.3 K/mm3 (0.0-0.7); EOS % 4.6 % (0.0-4.0); GRAN # 4.5 K/mm3 (1.4-6.5); GRAN % 68.6 % (42.2-75.2); LYMPH # 1.1 K/mm3 (1.2-3.4); LYMPH % 16.1 % (20.0-51.0); MEAN CELL VOLUME 98 fl (80.0-100.0); MEAN CORPUSCULAR HGB CONC 33 g/dl (33.0-37.0); MEAN PLATELET VOLUME 11.6 fl (7.4-10.4); MONO # 0.6 K/mm3 (0.1-0.6); MONO % 9.3 % (1.7-9.3); PLATELET COUNT 166 K/mm3 (130-400); RED BLOOD COUNT 2.39 M/mm3 (4.10-5.30)
[2023-08-02 05:22] LABS: HEMATOCRIT 23.3 % (37.0-47.0); HEMOGLOBIN 7.6 g/dl (12.5-16.0); MEAN CORPUSCULAR HEMOGLOBIN 32 pg (27-31)
[2023-08-02 05:43] LABS: ALBUMIN 2.2 gm/dL (3.4-4.8); CALCIUM 8.3 mg/dL (8.4-10.2); CREATININE, serum 4.01 mg/dL (0.57-1.11); MAGNESIUM 1.7 mg/dL (1.6-2.6); PHOSPHOROUS 3.9 mg/dL (2.3-4.7); POTASSIUM 3.9 mmol/L (3.5-4.5)
--- NOTE | 2023-08-02 10:20 | NUR ---
PATIENT ALERT AND ORIENTED X4. VSS. PATIENT HERE FOR [place] VS CKD. PATIENT DENIES ANY PAIN AT THIS TIME. IV TO LEFT AC WITH NS RUNNING AT 100ML/HOUR. ASSESSMENT PERFORMED, AM MEDS ADMINISTERED. PATIENT RESTING IN BED, NO FURTHER NEEDS. CALL LIGHT IN REACH.
--- NOTE | 2023-08-02 17:55 | NUR ---
TELEHEALTH PCT NOTIFIED OF CONSULT FOR DR. FARRELL.
--- NOTE | 2023-08-02 20:45 | NUR ---
Patient assessed at this time, see shift assessment, reports pain to lower back, PS of 9/10, oxycodone given as ordered PRN, IV infusing well to left AC, NS at 100cc/hr, denies SOA, denies further needs, call light and personal items within reach, will continue to monitor.
[2023-08-03 03:24] VITALS: BP 125/56; PULSE 77; TEMP 97.6
--- NOTE | 2023-08-03 04:08 | NUR ---
Patient complained of lower back pain, PS of 9/10, oxycodone given as ordered PRN, denies further needs, rash noted on her face as well, Dr. Sandhu ordered labs this AM.
[2023-08-03 07:37] VITALS: BP 135/63; PULSE 78; TEMP 99
[2023-08-03 07:57] LABS: BASO # 0.1 K/mm3 (0.0-0.2); EOS # 0.3 K/mm3 (0.0-0.7); EOS % 4.3 % (0.0-4.0); GRAN # 5.5 K/mm3 (1.4-6.5); GRAN % 75.1 % (42.2-75.2); LYMPH # 0.8 K/mm3 (1.2-3.4); LYMPH % 10.5 % (20.0-51.0); MEAN CELL VOLUME 100 fl (80.0-100.0); MEAN CORPUSCULAR HGB CONC 32 g/dl (33.0-37.0); MEAN PLATELET VOLUME 11.4 fl (7.4-10.4); MONO # 0.7 K/mm3 (0.1-0.6); MONO % 8.8 % (1.7-9.3); PLATELET COUNT 180 K/mm3 (130-400); RED BLOOD COUNT 2.51 M/mm3 (4.10-5.30); REDCELL DISTRIBUTION WIDTH-CV 17.2 % (11.5-14.5)
[2023-08-03 08:00] VITALS: BP_SYST 135
[2023-08-03 08:00] LABS: HEMOGLOBIN 8.1 g/dl (12.5-16.0); MEAN CORPUSCULAR HEMOGLOBIN 32 pg (27-31)
--- NOTE | 2023-08-03 08:00 | NUR ---
Pt. sitting up in bed. Pt. is a&XO3, assessment complete. IV to lt. ac patent. IV fluids infusing per orders. Pt. informed of when able to get pain meds. Pt. voices understanding. Pt. denies further needs, call light within reach.
[2023-08-03 08:16] LABS: ALBUMIN 2.2 gm/dL (3.4-4.8); CALCIUM 8.4 mg/dL (8.4-10.2); CREATININE, serum 3.14 mg/dL (0.57-1.11); MAGNESIUM 1.6 mg/dL (1.6-2.6); PHOSPHOROUS 3.4 mg/dL (2.3-4.7); POTASSIUM 3.8 mmol/L (3.5-4.5)
--- NOTE | 2023-08-03 12:00 | NUR ---
Pt. ready for discharge. INT discontinued from lt. AC. Reviewed and gave pt. discharge paperwork. Pt. dressed and escorted out by wheelchair.
[2023-08-04 14:32] LABS: C-ANCA 15 U/mL (0-99)
== END 2023-08-03 12:15 | disposition home or self-care (01) | DRG 684 ==
LOC: COL.ER 14:36 → SURG 17:02
PROVIDERS: Emergency Medicine; Internal Medicine; ADMIT Internal Medicine
DX: N17.9 Acute kidney failure, unspecified (principal); E87.5 Hyperkalemia; I10 Essential (primary) hypertension; E03.9 Hypothyroidism, unspecified
CPT/HCPCS: A9270; J2405; J7030; J7120; Q3014

== ENCOUNTER 2023-09-19 01:16 | Observation (INO) | payer MEDICAID ==
[2023-09-19] VITALS (7 sets, daily range): BP systolic 112–123; BP diastolic 56–76; PULSE 79–108; TEMP 98.1–98.5
[~2023-09-19] VITALS: Ht 167.6 cm; Wt 80.1 kg
[2023-09-19 02:57] LABS: BASO # 0.1 K/mm3 (0.0-0.2); BASO % 0.7 % (0.0-2.0); EOS # 0.4 K/mm3 (0.0-0.7); EOS % 3.1 % (0.0-4.0); GRAN # 9.9 K/mm3 (1.4-6.5); GRAN % 80.2 % (42.2-75.2); LYMPH % 8.2 % (20.0-51.0); MEAN CELL VOLUME 101 fl (80.0-100.0); MEAN CORPUSCULAR HGB CONC 34 g/dl (33.0-37.0); MEAN PLATELET VOLUME 10.9 fl (7.4-10.4); MONO # 0.9 K/mm3 (0.1-0.6); MONO % 7.2 % (1.7-9.3); PLATELET COUNT 203 K/mm3 (130-400); RED BLOOD COUNT 2.34 M/mm3 (4.10-5.30); REDCELL DISTRIBUTION WIDTH-CV 14.3 % (11.5-14.5)
[2023-09-19 03:03] LABS: HEMATOCRIT 23.6 % (37.0-47.0); HEMOGLOBIN 8.1 g/dl (12.5-16.0); MEAN CORPUSCULAR HEMOGLOBIN 35 pg (27-31)
[2023-09-19 03:20] LABS: ALBUMIN 2.5 gm/dL (3.4-4.8); BILIRUBIN,TOTAL 1.3 mg/dL (0.2-1.2); C-REACTIVE PROTEIN 7.97 mg/dL (0.00-0.50); CALCIUM 8.9 mg/dL (8.4-10.2); CREATININE, serum 3.2 mg/dL (0.57-1.11); POTASSIUM 4.2 mmol/L (3.5-4.5); TOTAL PROTEIN 7.6 gm/dL (6.2-8.1)
[2023-09-19 04:30] LABS: PH 5.5 (5.0-8.5); URINE APPEARANCE Cloudy (CLEAR/HAZY); URINE BLOOD TRACE-INTACT (NEGATIVE); URINE COLOR Yellow (YELLOW); URINE GLUCOSE Negative (NEGATIVE); URINE KETONE TRACE (NEGATIVE); URINE NITRATE Negative (NEGATIVE); URINE PROTEIN(semi-quant) 1+ (NEGATIVE)
[2023-09-19 04:31] LABS: AMORPHOUS CRYSTAL Present (NOT PRESENT); URINE BACTERIA Many /hpf (NONE SEEN)
[2023-09-19 04:32] LABS: COLLECTION METHOD CATHETER
[2023-09-19] MEDS ORDERED: SYNTHROID0.075 MG/T PO (04:48)
[2023-09-19 06:51] LABS: INR 1.3 (0.8-3.0); PROTHROMBIN TIME 14.5 SECONDS (9.7-12.8)
[2023-09-19 07:46] LABS: PHOSPHOROUS 2.6 mg/dL (2.3-4.7)
[2023-09-19 08:08] LABS: CALCIUM 8.1 mg/dL (8.4-10.2); CREATININE, serum 2.78 mg/dL (0.57-1.11); POTASSIUM 3.9 mmol/L (3.5-4.5)
--- NOTE | 2023-09-19 10:15 | NUR ---
Patient admitted to unit around 0815. MERY Parkinson completed admission intake, this nurse completed physical exam. Patient alert and oriented x4. Patient assisted to bathroom upon arrival, gait steady but slow with cane and SBA. Patient incontinent of urine, new gown and brief provided. Skin noted to be dry with psoriasis patches scattered throughout upper and lower extremities bilateral. Skin dry and scaling to back as well. Bottom skin intact with no redness noted. Lotion provided to patient. Patient discouraged from scratching. Lung sounds clear, HR noted to be tachycardic. Patient currently in bed with call light in reach and fall precautions in place.
--- NOTE | 2023-09-19 11:40 | NUR ---
Dr. Arora called regarding nephrology consult that was ordered to switch to telehealth. Dr. Arora states there are no concerns with patient requiring nephrology consult at this time due to patient's creatinine trending down. Consult cancelled.
--- NOTE | 2023-09-19 12:02 | NUR ---
D: Initial visit: Senior Storage Administrator stopped by room on rounds. Pt was resting and content. A: Pt has no needs right now. P: Senior Storage Administrator informed pt that if she needed anything to let her nurse know. Senior Storage Administrator will follow up as needed.
--- NOTE | 2023-09-19 12:54 | NUR ---
Patient resting in bed, declines increase in pain. States she feels "very tired and needs to rest." Call light within reach and fall precautions in place.
--- NOTE | 2023-09-19 15:14 | NUR ---
SW Student identified self as SW Student and completed intake with patient at bedside. Patient was previously admitted 07/31-08/03 for acute on chronic renal insufficiency. Patient lives in [place], [place] alone. Patient's PCP is Dr. Tushar Barber. Patient stated that she has seen her PCP since last hospital stay. Patient obtains medications from [facility] on [address]. Patient stated that she has not had any concerns with affording medications. Patient stated that she has been fairly independent with ADLs, but at this time she feels like she is needing assistance with some things. Patient stated that her friend Erik (ph# [phone]) will usually assist with things when needed, but patient feels like she may need more assistance than that. Patient stated that she may be interested in Home Health services. Patient is covered by [place] Medicaid. Patient stated that she does not currently have a DPOA-HC and is not interested in completing a form at this time. Patient expressed that she is very tired and would like to rest. Discharge Plan: Home
--- NOTE | 2023-09-19 16:18 | NUR ---
Patient complains of back pain "all over." PRN Roxicodone administered per orders. Patient alert and awake, currently resting in bed with call light in reach, fall precautions in place.
--- NOTE | 2023-09-19 18:16 | NUR ---
Patient resting in bed, states PRN Roxicodone was effective for pain. Patient states she feels very tired and not very hungry. Call light within reach and fall precautions in place.
--- NOTE | 2023-09-19 21:15 | NUR ---
Patient resting in bed with family at bedside. States her pain is at a 10/10, pain meds given. Lotion applied to back and arms, denies any other needs. Assessment complete. IV in left AC does not flush, IV removed. Denies any other needs at this time. Call light and personal items in reach. Bed in low position.
[2023-09-20] VITALS (11 sets, daily range): BP systolic 112–147; BP diastolic 67–75; PULSE 73–108; TEMP 98–98.4
[2023-09-20 02:05] LABS: OSMOLALITY-URINE random 239 Osm/kg (50-1200)
--- NOTE | 2023-09-20 06:00 | NUR ---
Patient resting in bed. Assissted patinet to bathroom and back to bed. Denies any other needs or pain at this time. Call light and personal items in reach. Bed in low position and bed alarm on.
[2023-09-20 06:45] LABS: BASO % 0.5 % (0.0-2.0); EOS # 0.5 K/mm3 (0.0-0.7); EOS % 6.4 % (0.0-4.0); GRAN # 4.8 K/mm3 (1.4-6.5); GRAN % 62.8 % (42.2-75.2); LYMPH # 1.2 K/mm3 (1.2-3.4); LYMPH % 15.6 % (20.0-51.0); MEAN CELL VOLUME 100 fl (80.0-100.0); MEAN CORPUSCULAR HGB CONC 34 g/dl (33.0-37.0); MEAN PLATELET VOLUME 10.2 fl (7.4-10.4); MONO # 1.1 K/mm3 (0.1-0.6); MONO % 13.9 % (1.7-9.3); PLATELET COUNT 168 K/mm3 (130-400); RED BLOOD COUNT 1.99 M/mm3 (4.10-5.30); REDCELL DISTRIBUTION WIDTH-CV 14.6 % (11.5-14.5)
[2023-09-20 07:00] LABS: BILIRUBIN,TOTAL 0.9 mg/dL (0.2-1.2); CALCIUM 8.5 mg/dL (8.4-10.2); CREATININE, serum 2.4 mg/dL (0.57-1.11); POTASSIUM 3.7 mmol/L (3.5-4.5)
[2023-09-20 07:10] LABS: HEMATOCRIT 19.8 % (37.0-47.0); MEAN CORPUSCULAR HEMOGLOBIN 34 pg (27-31)
[2023-09-20 07:12] LABS: HEMOGLOBIN 6.8 g/dl (12.5-16.0)
--- NOTE | 2023-09-20 07:24 | NUR ---
Dr. Arora notified of patient's critical hemoglobin lab value at 0725.
[2023-09-20 09:27] LABS: HEMATOCRIT 19.8 % (37.0-47.0)
--- NOTE | 2023-09-20 09:36 | NUR ---
Patient alert and oriented x4 this morning. Shift assessment complete. Patient continues to ambulate steady SBA to bathroom. Tolerating food and fluids well. Chronic skin issue continues, patient scratches aggressively. Frequently reminded to not scratch too hard. Lotion applied. Tachycardia continues. Hemoglobin lab re-done and noted to be 7.0. No new bruising noted to skin, no BM recently to observe for bleeding. Heparin injection held this morning due to hemoglobin, Dr. Arora aware. Patient states she feels better than yesterday. Patient resting in bed with call light in reach.
--- NOTE | 2023-09-20 12:49 | NUR ---
Patient inquired about plan regarding sore/red bunion to right foot. Patient under impression she was getting an x-ray done. Patient informed about uric acid lab related to gout and notified that doctor will review labs and make a plan then. Patient complains of itchy back, lotion applied. Lunch tray ordered. Patient sitting up in bed with call light in reach.
--- NOTE | 2023-09-20 13:41 | NUR ---
D: Pulp And Paper Tester visit attempted during Pulp And Paper Tester rounds. A: Patient declined stating that she was tired and wanted to nap. P: Chaplains will remain available to Patient upon her request.
--- NOTE | 2023-09-20 17:30 | NUR ---
Patient continues to be stable. Continues to itch self, lotion reapplied. Uric acid elevated, orders given to start prednisone. 1600 Heparin held due to low hemoglobin, Dr. Arora aware. Patient resting in bed with call light in reach, all needs met at this time.
[2023-09-21] VITALS (15 sets, daily range): BP systolic 142–159; BP diastolic 63–79; PULSE 80–100; TEMP 97.9–98.8
--- NOTE | 2023-09-21 03:16 | NUR ---
Shift assessment completed. Pt is alert and oriented. She is lying comfortably in bed. PRN trazadone was administered as requested by pt. Barrier cream was applied generously over arms, flanks and legs to sooth the psoriasis. Pt denies any other needs at this time. Fall precautions in place and call light left within reach.
[2023-09-21 06:40] LABS: MEAN CELL VOLUME 103 fl (80.0-100.0); MEAN CORPUSCULAR HGB CONC 32 g/dl (33.0-37.0); MEAN PLATELET VOLUME 10.8 fl (7.4-10.4); PLATELET COUNT 191 K/mm3 (130-400); RED BLOOD COUNT 2.01 M/mm3 (4.10-5.30); REDCELL DISTRIBUTION WIDTH-CV 14.7 % (11.5-14.5)
[2023-09-21 06:52] LABS: HEMATOCRIT 20.7 % (37.0-47.0); HEMOGLOBIN 6.7 g/dl (12.5-16.0); MEAN CORPUSCULAR HEMOGLOBIN 33 pg (27-31)
[2023-09-21 07:00] LABS: ALBUMIN 2.2 gm/dL (3.4-4.8); BILIRUBIN,TOTAL 0.8 mg/dL (0.2-1.2); CALCIUM 8.8 mg/dL (8.4-10.2); CREATININE, serum 2.08 mg/dL (0.57-1.11); POTASSIUM 3.7 mmol/L (3.5-4.5); TOTAL PROTEIN 6.5 gm/dL (6.2-8.1)
[2023-09-21 07:35] LABS: BAND 4 % (0-10); HYPOCHROMIA 2+; LYMPHOCYTE 22 % (20.0-51.0); NEUTROPHILS 71 % (42.0-75.2); PLATELET ESTIMATE NORMAL (NORMAL)
--- NOTE | 2023-09-21 07:45 | NUR ---
2815 CRITICAL [address]EM[address] CALLED TO DR. STEPHENSON 6.7
--- NOTE | 2023-09-21 07:49 | NUR ---
This nurse found pt attemting to take home medication of oxycodone 10 mg. I discussed with pt why we cannot have her taking any home medications while she is here. The medication and bottle was taken from pt. She states that she has no other medications with her. Medication count was verified with Jayda Man RN for a total of 59 oxycodone 10 mg tablets. Medication was given to the beam house inspector, MERY Belle to take down to the pharmacy with pt label on medication bottle.
--- NOTE | 2023-09-21 08:03 | NUR ---
0783 BLOOD CONSENT FORM SIGNED WITH PATIENT THIS RN WITNESS. EDUCATION PROVIDED FOR PATIENT ABOUT BLOOD TRANSFUSION. 0800 ASSESSMENT COMPLETE AT THIS TIME. PT RESTING COMFORTABLY IN BED, SHE REPORTS BILATERAL LEG PAIN THAT IS CONSTANT AT A 5/10, SHE UNDERSTANDS SHE CAN HAVE HER OXYCODONE AT 0940. LUNG SOUNDS CLEAR, NO EDEMA PRESENT. PT DOES HAVE PSORIASIS AND DRYNESS OF HER SKIN, AND GENERALIZED BRUISING. SHE HAS NO OTHER REQUESTS AT THIS TIME, CALL LIGHT, PERSONAL ITEMS, AND SIDE TABLE WITHIN REACH. BED LOCK AND IN LOW POSITION,
--- NOTE | 2023-09-21 11:19 | NUR ---
1116 STARTED TO ADMINISTER 1 UNIT PRBC TO PATIENT. PT IS RESTING COMFORTABLY IN BED. SHE STATES SHE USED TO GET BLOOD TRANSFUSIONS OFTEN DUE TO ANEMIA, EDUCATION PROVIDED AND SHE STATED SHE KNEW THE TEACHING.
--- NOTE | 2023-09-21 15:29 | NUR ---
Dr Sandhu informed SW pt was being changed to inpt and awaiting a blood transfusion.
[2023-09-21] MEDS ORDERED: CEPHALEXIN250 M1 PO (15:56)
[2023-09-21] MEDS ORDERED: PREDNISONE10 MG PO (15:59)
[2023-09-21 16:21] LABS: HEMATOCRIT 23.4 % (37.0-47.0)
--- NOTE | 2023-09-21 16:32 | NUR ---
ASSISTED PATIENT WITH FILLING UP HER DRINK, PROVIDED THE PATIENT WITH A NEW DEPENDS, TOLD THE PATIENT THAT HER HGB WAS 8.[address] PLANS TO DISCHARGE HER TODAY SHE IS DOING MUCH BETTER. PT STATED THAT SHE CAN NOT WALK. INFORMED PATIENT THAT I HAVE AMBULATED WITH HER SEVERAL TIMES TODAY AND SHE IS AMBULATING WELL WITH HER CANE. PT STATED YEAH BUT I CAN NOT WALK VERY FAR. PT HAS AMBULATED WITH NO ASSISTANCE ALL DAY BUT HAS JUST BEEN STANDBY NO CONTACT.
== END 2023-09-21 17:10 | disposition home or self-care (01) ==
LOC: COL.ER 01:16 → MEDICAL 05:46 → COL.ER 11:26 → MEDICAL 13:43
PROVIDERS: Emergency Medicine; Internal Medicine; Nurse Practitioner Family; ADMIT Internal Medicine
DX: N39.0 Urinary tract infection, site not specified (principal); N17.9 Acute kidney failure, unspecified; N18.9 Chronic kidney disease, unspecified; D53.9 Nutritional anemia, unspecified; M10.9 Gout, unspecified; E03.9 Hypothyroidism, unspecified; G47.09 Other insomnia; K76.0 Fatty (change of) liver, not elsewhere classified; E88.09 Other disorders of plasma-protein metabolism, not elsewhere classified; M79.676 Pain in unspecified toe(s); E87.8 Other disorders of electrolyte and fluid balance, not elsewhere classified; L98.9 Disorder of the skin and subcutaneous tissue, unspecified; Z79.899 Other long term (current) drug therapy; Z79.890 Hormone replacement therapy
CPT/HCPCS: OP; G0378; J0696; J1644; J7030; J7512; P9016